=== PATIENT | female | born 1985 | race Caucasian/White ===

== ENCOUNTER 2020-06-30 06:51 | Outpatient (NON) | payer BC, SELFPAY ==
[2020-07-03 12:31] LABS: SARS-CoV-2 RNA PCR Negative
== END 2020-06-30 06:52 ==
LOC: ANHCOVIDDT 06:52
PROVIDERS: PCP Student in an Organized Health Care Education/Training Program; Visit Provider Student in an Organized Health Care Education/Training Program
DX: Z20.828 Contact with and (suspected) exposure to other viral communicable diseases (principal)
CPT/HCPCS: 87635; C9803; U0003

== ENCOUNTER 2023-08-02 10:11 | Emergency (ER) | payer BC, SELFPAY ==
[2023-08-02 10:47] VITALS: BP 131/64; PULSE 89; RESP 16; TEMP 36.2; O2SAT 100
--- NOTE | 2023-08-02 11:29 | ED.URI ---
HPI - URI/Sore Throat General Chief Complaint: Upper Respiratory Infection Stated Complaint: Headache/Sore Throat Source: patient Mode of arrival: ambulatory Limitations: no limitations History of Present Illness HPI Narrative: 37-year-old female presents to [facility] with complaints of sore throat, fatigue, headache and chills for the past 4-5 days. Patient has been taking [id number] ibuprofen with minimal relief. Patient reports that her son had strep throat 2-3 weeks ago. 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 Patient denies fever, body aches, cough, shortness of breath or wheezing. Patient is nonsmoker. Patient denies recent travel. MD elicited complaint: sore throat and other (fatigue, headache, chills ) Onset (ago): day(s) (4) Able to tolerate fluids by mouth: Yes Treatments prior to arrival: ibuprofen Related Data Allergies Allergy/AdvReac Type Severity Reaction Status Date / Time Penicillins AdvReac Mild HIVES Verified 08/02/23 11:00 CEPHALEXIN MONOHYDRATE AdvReac Mild Hives Uncoded 08/02/23 11:00 Review of Systems Constitutional: Constitutional: Reports chills, Reports fatigue, Denies fever(s) and Denies weakness ENT: Denies dizziness, Denies epistaxis, Denies nasal congestion and Reports sore throat Cardiovascular: Cardiovascular: Denies chest pain Respiratory: Respiratory: Denies cough, Denies dyspnea and Denies wheezing Gastrointestinal: Gastrointestinal: Denies diarrhea, Denies nausea and Denies vomiting Integumentary/Breasts: Skin/Breast: Denies rash Neurologic: Denies syncope and Denies headache(s) PMFSH Comments At time of signature, I agree with nursing past medical, surgical, social and family history. There is no relevant family history pertinent to the presenting complaint. Exam Const: General: healthy appearing and no acute distress Nutritional Appearance: well nourished Orientation/consciousness: patient oriented x3 Limitations: no limitations HENMT: Head: normal to inspection Ears: external ears normal, TM's normal bilaterally and EAC's normal Face/Nose/Sinus: Normal external nose present Face and sinus: normal facial exam Mouth: Yes moist mucous membranes Throat: uvula midline Other: Bilateral nasal congestion noted Eyes: Conjunctivae: conjunctivae normal Neck: Neck: normal visual inspection Resp: Effort & Inspection: normal respiratory effort and not labored Auscultation: clear to auscultation bilaterally, no crackles, no rales and no rhonchi Cardio: Rate: regular rate Rhythm: regular rhythm Heart sounds: no murmurs Skin: General skin exam: normal color Rashes: no rashes Wounds: no wounds Neuro: General: patient oriented x3 Speech: normal speech Psych: Affect: normal affect Attitude: cooperative Course Course Level of Care: Express Care Visit Vital Signs Vital signs: Vital Signs Temperature 36.2 C L 08/02/23 10:47 Pulse Rate 89 08/02/23 10:47 Respiratory Rate 16 08/02/23 10:47 Blood Pressure 131/64 08/02/23 10:47 Pulse Oximetry 100 08/02/23 10:47 Oxygen Delivery Room Air 08/02/23 10:47 Temperature 36.2 C L 08/02/23 10:47 Pulse Rate 89 08/02/23 10:47 Respiratory Rate 16 08/02/23 10:47 Blood Pressure 131/64 08/02/23 10:47 Pulse Oximetry 100 08/02/23 10:47 Oxygen Delivery Room Air 08/02/23 10:47 MDM - URI/Sore Throat MDM Narrative Medical decision making narrative: Encouraged patient to take Claritin daily. Encouraged patient to start antibiotic in 24-48 hours if symptoms not improved. Instructed patient to follow-up with primary care provider if symptoms are improved. Differential Diagnosis Differential diagnosis: Likely otitis media, sinusitis and viral infection Lab Data Labs: Influenza A Screen Negative Reference Range: Negative Influenza B Screen Negative
== END 2023-08-02 11:48 | disposition home or self-care (01) ==
PROVIDERS: Emergency Provider Nurse Practitioner Family; PCP Student in an Organized Health Care Education/Training Program
DX: J06.9 Acute upper respiratory infection, unspecified (principal); Z20.822 Contact with and (suspected) exposure to COVID-19; K21.9 Gastro-esophageal reflux disease without esophagitis; Z86.16 Personal history of COVID-19
CPT/HCPCS: 87081; 87426; 87804; 87880; 99213; C9803; G0463

== ENCOUNTER 2024-01-29 15:20 | Outpatient (CLI) | payer BC, SELFPAY ==
--- NOTE | ~2024-01-29 | MM_ITS ---
EXAMINATION: MM screening brandi BI w dalia HISTORY: Screening TECHNIQUE: Craniocaudal and mediolateral oblique 3-D tomosynthesis images were obtained and synthetic 2-D images were generated. CAD analysis was submitted and interpreted. COMPARISON: No prior mammogram is available for comparison at this institution. BREAST PARENCHYMAL COMPOSITION: Dense: The breasts are extremely dense, which lowers the sensitivity of mammography. FINDINGS: There is no evidence of suspicious mass, calcification, or architectural distortion to sugg est malignancy in either breast. There has been no suspicious interval change. IMPRESSION: 1. No mammographic evidence of malignancy. 2. Recommend routine screening mammography in one year. BI-RADS Category 1: Negative Reviewed, dictated and finalized at location B.
== END 2024-01-29 15:21 | disposition home or self-care (01) ==
LOC: ANHIMG 15:21
PROVIDERS: PCP Student in an Organized Health Care Education/Training Program; Visit Provider Obstetrics & Gynecology
DX: Z12.31 Encounter for screening mammogram for malignant neoplasm of breast (principal)
CPT/HCPCS: 77063; 77067

== ENCOUNTER 2025-05-02 13:53 | Outpatient (CLI) | payer BC, SELFPAY ==
--- NOTE | ~2025-05-02 | MM_ITS ---
EXAMINATION: MM screening brandi BI w dalia HISTORY: Screening TECHNIQUE: Craniocaudal and mediolateral oblique 3-D tomosynthesis images were obtained and synthetic 2-D images were generated. CAD analysis was submitted and interpreted. COMPARISON: 01/29/2024 BREAST PARENCHYMAL COMPOSITION: The breasts are extremely dense, which lowers the sensitivity of mammography. FINDINGS: There is no evidence of suspicious mass, calcification, or architectural distortion to suggest malignancy. There has been no suspicious interval change. IMPRESSION: 1. No mammographic evidence of malignancy. Recommend routine screening mammography in one year. BI-RADS Category 2: Benign finding(s) Reviewed, dictated and finalized at location Q. IMPRESSION: 1. No mammographic evidence of malignancy. Recommend routine screening mammogra phy in one year. BI-RADS Category 2: Benign finding(s)
--- OUTSIDE RECORDS SUMMARY | 2025-05-02 15:36 | XMS_ITS | Clinical Summary ---
Author Organization [facility] Address [address] [place] [address] Care Team Providers Care Jack Setter Name Role Phone Stan Mejia Primary Care Provide r Allergies Active Allergy Reactions Criticality Noted Date Comments Cephalexin Hives Medium 12/27/2014 Hives Penicillins Hives Medium 12/27/2014 Hives Medications potassium bicarb-citric acid (K-LYTE) 10 mEq tablet, effervescent Take 1 tablet (10 mEq total) by mouth daily Active cholecalciferol (VITAMIN D-3) 1,000 unit Take 1 tablet/capsu le (1,000 Units total) by mouth daily Active multivitamin capsule Take 1 capsule by mouth daily Active Lactobacillus acidophilus (PROBIOTIC ACIDOPHILUS ORAL) Take by mouth Active Active Problems No known active problems Social History Tobacco Use Types Packs/Day Years Used Date Smoking Tobacco: Never Tobacco Cessation:Counseling Given: Not Answered Personal Safety Answer Date Recorded Getting School Help Needed Not on file 08/16 Comments Unknown Sex and Gender Information Value Date Recorded Sex Assigned at Not on file Legal Sex Female 8:42 PM [employer] Gender Identity Not on file Sexual Orientation Not on file Obstetrics History Last Filed Vital Signs Vital Sign Reading Time Taken Comments Blood Pressure 97/61 12/27/2014 6:31 AM CDT Pulse 69 12/27/2014 6:31 AM CDT Temperature 37.4 C (99.4 F) 12/27/2014 6:31 AM CDT Respiratory Rate - - Oxygen Saturation 99% 12/27/2014 6:31 AM CDT Inhaled Oxygen Concentration - - Weight 59 kg (130 lb) 06/01/2023 1:21 PM CDT Height 167.6 cm (5' 6) 06/01/2023 1:21 PM CDT Body Mass Index 20.98 06/01/2023 1:21 PM CDT Plan of Treatment Health Maintenance Due Date Last Done Comments Breast Cancer Screening-Mammogram 1983 Cervical Cancer Screening 1983 Depression Screening 1983 Hepatitis C Screening 1983 Regular Well Visit/Exam 18-64 11/17/2001 Covid-19 Vaccine ( season) 2025 06/16/2022, 08/26/2020, 08/05/2020 Influenza Vaccine (#1) 2025 , 06/01/2020, 06/16/2019, Additional history exists DTaP/Tdap/Td Vaccine (5 - Td or Tdap) 08/04/2028 08/04/2018, 03/03/2013, 01/12/2009, Additional history exists Varicella Vaccines Completed 02/20/1993, 05/30/1985 Hepatitis B Screening Completed 04/03/1997 , 04/03/1997, 09/28/1996, Additional history exists HPV Vaccines Completed 03/16/2008, 08/19, 03/16/2007 Pneumococcal vaccine <65 Aged Out No longer eligible based on patient's age to complete this topic Insurance [employer] [place] [employer] Care Teams Jack Setter Relationship Specialty Start Date End Date Stan Mejia DO [address] [place] [id number] PCP - General Family Medicine 06/01/23
== END 2025-05-02 13:54 | disposition home or self-care (01) ==
LOC: ANHFOHIMG 13:54
PROVIDERS: PCP Student in an Organized Health Care Education/Training Program; Visit Provider Obstetrics & Gynecology
DX: Z12.31 Encounter for screening mammogram for malignant neoplasm of breast (principal)
CPT/HCPCS: 77063; 77067